=== PATIENT | male | born 1995 | race Caucasian/White ===

== ENCOUNTER 2018-06-17 20:58 | Emergency (ER) | payer BC ==
[~2018-06-17] VITALS: Ht 157.5 cm; Wt 57.6 kg
[2018-06-17 21:00] VITALS: BP 101/61
[2018-06-17] MEDS ORDERED: KETOROLAC TROMETHAMINE INJ 60 MG/2 ML VIAL IM ONE ×2 (23:30→23:34)
== END 2018-06-18 00:41 | disposition home or self-care (01) ==
LOC: ER 21:02
DX: R07.89 Other chest pain (principal)
CPT/HCPCS: 71045; 93005; 96372; 99284; A4606; J1885; Z7610